=== PATIENT | female | born 1955 | race Two or more races ===

== ENCOUNTER → 2021-10-25 | Outpatient (CLI) | payer OTHER ==
[~2021-10-25] VITALS: Ht 30.5 cm; Wt 0.5 kg
[2021-10-25] VITALS (8 sets, daily range): BP systolic 136–168; BP diastolic 73–119
[~2021-10-25] MED LIST: LORazepam 2MG/ML-1ML VIAL IV ONE; LORazepam 2MG/ML-1ML VIAL ONE; REGENERON 1200mg/250ml NS 250 ML IV ONE
== END | disposition home or self-care (01) ==
LOC: ER 12:19
PROVIDERS: ATTEND Internal Medicine
DX: U07.1 COVID-19 (principal)
CPT/HCPCS: 96374; J2060; J7050; M0243; Q0244